=== PATIENT | female | born 2000 | race Hispanic/Latino ===

== ENCOUNTER 2024-08-10 23:15 | Emergency (ER) | payer BC ==
[~2024-08-10] VITALS: Ht 149.9 cm; Wt 68.0 kg
[2024-08-10 23:17] VITALS: TEMP 98.9
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
[2024-08-11] MEDS: acetaMINOPHEN 500 MG TABLET PO ONE (00:01)
[2024-08-11] MEDS: teTANUS/diphthERIA TOXOID [ADULT] 0.5 ML VIAL IM ONE (00:03)
[2024-08-11] MEDS ORDERED: CEPH500T PO (00:20)
[2024-08-11] MEDS: NEOMY SULF/BACITRA/POLYMYXIN B 1 EACH PACKET TP ONE (00:26)
[2024-08-11 00:30] VITALS: BP 124/88; PULSE 74; RESP 16; O2SAT 98
--- NOTE | 2024-08-11 08:47 | HMCIMG ---
Exam Type: HAND 3+VWS RT, HAND 3+VWS LT Clinical Information: DISTAL RING FINGER PAIN WITH PARTIAL NAIL AVULSION Comparison: None Findings: The bone examination is unremarkable. No fractures or dislocations are seen. No radiopaque foreign bodies are noted. Soft tissues are preserved. IMPRESSION: Normal examination.
== END 2024-08-11 00:43 | disposition home or self-care (01) ==
LOC: EDH 23:15
DX: S00.412A Abrasion of left ear, initial encounter (principal); S61.305A Unspecified open wound of left ring finger with damage to nail, initial encounter; S61.304A Unspecified open wound of right ring finger with damage to nail, initial encounter; Y08.89XA Assault by other specified means, initial encounter; Y93.9 Activity, unspecified; Y92.89 Other specified places as the place of occurrence of the external cause; Y99.8 Other external cause status
CPT/HCPCS: 73130; 90471; 90714; 99284